=== PATIENT | female | born 1975 | race African-American/Black ===

== ENCOUNTER 2024-10-02 16:38 | Emergency (ER) | payer MEDICAID ==
[~2024-10-02] VITALS: Ht 167.6 cm; Wt 68.0 kg
[~2024-10-02 16:38] MED LIST: ONDA4TAB50 MT
[2024-10-02 16:40] VITALS: PULSE 99; RESP 14; O2SAT 98
[2024-10-02 16:45] VITALS: BP 115/68; TEMP 36.9; O2SAT 99
[2024-10-02] MEDS ORDERED: IPRATROPIUM/ALBUTEROL 0.5-3(2.5)MG/3ML NEB HHN ONE (18:00)
[2024-10-02] MEDS: PREDNISONE 20MG TABLET PO ONE (18:40)
[2024-10-02] MEDS ORDERED: TOPUD MT (19:00)
[2024-10-02] MEDS ORDERED: IBUP-1523 MT (19:00)
[2024-10-02] MEDS: HYDROCODONE/ACETAMINOPHEN 7.5/325MG TABLET PO ONE (19:07)
== END 2024-10-02 19:10 | disposition home or self-care (01) ==
LOC: ER 16:38
DX: S46.912A Strain of unspecified muscle, fascia and tendon at shoulder and upper arm level, left arm, initial encounter (principal); X50.0XXA Overexertion from strenuous movement or load, initial encounter; Y93.89 Activity, other specified; Y92.89 Other specified places as the place of occurrence of the external cause; Y99.8 Other external cause status
CPT/HCPCS: 99282; J7512; Z7610